=== PATIENT | female | born 1985 | race Caucasian/White ===

== ENCOUNTER 2016-05-10 23:43 | Emergency (ER) | payer OTHER ==
[~2016-05-10] VITALS: Ht 162.6 cm; Wt 96.3 kg
[2016-05-11] MEDS ORDERED: PREDNISONE20 MG PO (00:47)
[2016-05-11] MEDS ORDERED: PROVENTIL HFA6.7 GM IH (00:47)
[2016-05-11] MEDS ORDERED: ZITHROMAX Z-PA250 MG PO (00:47)
[2016-05-11 01:23] VITALS: BP 154/89
== END 2016-05-11 01:31 | disposition home or self-care (01) ==
LOC: EME 23:43
DX: J20.9 Acute bronchitis, unspecified (principal); J45.909 Unspecified asthma, uncomplicated
CPT/HCPCS: 71020; 99281; 99283; J7512